=== PATIENT | female | born 1995 | race Caucasian/White ===

== ENCOUNTER 2016-11-21 23:25 | Emergency (ER) | payer OTHER ==
[2016-11-21 23:34] VITALS: BP 130/74; PULSE 96; RESP 16; TEMP 98.6; O2SAT 99
--- NOTE | 2016-11-22 00:06 | ED PDOC ---
HPI: Skin/Bite Injury Time Seen by Provider: 11/21/16 23:38 Chief Complaint (Nursing): Abnormal Skin Integrity Chief Complaint (Provider): painful lumps to armpits History Per: Patient History/Exam Limitations: no limitations Onset/Duration Of Symptoms: Days (3 weeks) Current Symptoms Are (Timing): Still Present Additional History Per: Patient Additional Complaint(s): 21 y/o female presents with pain/swelling to b/l axilla x 3 weeks. Patient admits to symptoms on-and-off x years, states usually pop or go away on their own when applying hot water while showering. Denies fever, nausea/vomiting, drainage from site. Past Medical History Reviewed: Historical Data, Nursing Documentation, Vital Signs Vital Signs: Last Vital Signs Temp 98.6 F 11/21/16 23:30 Pulse 96 H 11/21/16 23:30 Resp 16 11/21/16 23:30 BP 130/74 11/21/16 23:30 Pulse Ox 99 11/21/16 23:30 - Medical History PMH: No Chronic Diseases - Surgical History Surgical History: No Surg Hx - Family History Family History: States: Unknown Family Hx - Living Arrangements Living Arrangements: With Family - Home Medications Home Medications: Ambulatory Orders Medication Instructions Recorded Clindamycin [Cleocin] 300 mg PO TID #20 cap 11/22/16 Ibuprofen [Motrin Tab] 1 tab PO Q6 PRN #20 tab 11/22/16 - Allergies Allergies/Adverse Reactions: Allergies Allergy/AdvReac Type Severity Reaction Status Date / Time No Known Allergies Allergy Verified 11/21/16 23:34 Review of Systems ROS Statement: Except As Marked, All Systems Reviewed And Found Negative Skin: Positive for: Lesions Physical Exam - Reviewed Nursing Documentation Reviewed: Yes Vital Signs Reviewed: Yes - Physical Exam Appears: Positive for: Well, Non-toxic, No Acute Distress Head Exam: Positive for: ATRAUMATIC, NORMAL INSPECTION, NORMOCEPHALIC Skin: Positive for: Rash (multiple nonfluctuant palpable nodules b/l axilla with + erythema. No drainage, streaking noted) Cardiovascular/Chest: Positive for: Regular Rate, Rhythm Respiratory: Positive for: Normal Breath Sounds Neurologic/Psych: Positive for: Alert, Oriented - ECG O2 Sat by Pulse Oximetry: 99 - Progress ED Course And Treament: Patient educated on findings, discharged with rx clindamycin, ibuprofen (doses given in ED) Advised follow up PMD 2-3 days. Patient educated on hygiene, warm compresses, preventing local trauma/skin disturbance to areas. Return to ED for worsening/concerning symptoms. Disposition - Clinical Impression Clinical Impression: Axillary abscess - Patient ED Disposition Is Patient to be Admitted: No Counseled Patient/Family Regarding: Diagnosis, Need For Followup, Rx Given - Disposition Disposition: Routine/Home Disposition Time: 00:10 Condition: STABLE Additional Instructions: Take medication as directed. Apply warm compresses 3-5x daily. Follow up with primary doctor in 2-3 days. Return to ED for worsening/concerning symptoms. Prescriptions: Clindamycin [Cleocin] 300 mg PO TID #20 cap Ibuprofen [Motrin Tab] 1 tab PO Q6 PRN #20 tab PRN Reason: Pain, Moderate (4-7) Instructions: Abscess (ED) Forms: [facility] ED School/Work Excuse
== END 2016-11-22 00:53 | disposition home or self-care (01) ==
LOC: H.ER 23:25
DX: L02.419 Cutaneous abscess of limb, unspecified (principal)